=== PATIENT | male | born 1970 | race Caucasian/White ===

== ENCOUNTER 2016-11-26 16:32 | Emergency (ER) | payer OTHER ==
[~2016-11-26] VITALS: Ht 177.8 cm; Wt 98.4 kg
[~2016-11-26 16:32] MED LIST: FLEXERIL10 MG PO; IBU-8800 MG PO
[2016-11-26] MEDS ORDERED: MELOXICAM15 MG PO (16:52)
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
[2016-11-26 17:21] VITALS: BP 150/81
--- NOTE | 2016-11-26 19:44 | RADIOLOGY REPORT PS360 ---
PELVIS AP ONLY HISTORY: INJURYAP Patient Age: 46 years: Male Ordering Physician: Estela Davila MD TECHNIQUE: Pelvis radiograph COMPARISON :Left hip from 2013. FINDINGS Osseous pelvis intact bones well mineralized. No fracture. Left hip. There may be some early narrowing at the superior left hip joint space. Versus right. Equivocal. Minor sclerosis at roof of the acetabulum bilaterally most evident on left.. There is small subchondral cystic feature at the superior rim of the right acetabulum noted. These features may reflect some very early degenerative changes at the hips Sacrum and SI joints unremarkable. IMPRESSION: Osseous pelvis intact. No acute findings Borderline narrowing superior left hip joint space. Question minor minor very early degenerative changes at both hips
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
--- OUTSIDE RECORDS SUMMARY | 2016-11-28 21:54 | External Medical Summary Rpt ---
Author Author [employer] Bowden, [employer] Organization [employer] Address Unknown Phone Unavailable
--- OUTSIDE RECORDS SUMMARY | 2016-11-28 21:54 | External Medical Summary Rpt ---
Author Author [employer] Organization [employer] Address Unknown Phone Unavailable Purpose Continuity of Care Document - through 2016
--- OUTSIDE RECORDS SUMMARY | 2016-11-28 21:54 | External Medical Summary Rpt ---
Author Author CORETTA Address Unknown Phone [email or web address] Purpose Continuity of Care Document - through 2016 Problems Code Diagnosis DOS Provider Status M79.1 MYALGIA T14.90 INJURY, UNSPECIFIED
--- OUTSIDE RECORDS SUMMARY | 2016-11-28 21:54 | External Medical Summary Rpt ---
Demographics Preferred Language Venezuelan Marital Status Unknown Christianity Affiliation Unknown Race Unknown Ethnic Group Unknown Author Author , CORETTA KUMAR Address Unknown Phone Immunization Unable to retrieve immunization data due to connection failure with Immunization Registry. Please try again later.
--- OUTSIDE RECORDS SUMMARY | 2016-11-28 21:54 | External Medical Summary Rpt ---
Demographics Preferred Language Mexican Marital Status Unknown Tenriism Affiliation Unknown Race Unknown Ethnic Group Unknown Author Author , CORETTA KUMAR Address Unknown Phone Immunization Unable to retrieve immunization data due to connection failure with Immunization Registry. Please try again later.
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
== END 2016-11-26 17:22 | disposition home or self-care (01) ==
LOC: ER 16:32
DX: M25.512 Pain in left shoulder (principal); M54.2 Cervicalgia; V09.9XXA Pedestrian injured in unspecified transport accident, initial encounter; Y92.9 Unspecified place or not applicable